=== PATIENT | female | born 1955 | race Caucasian/White ===

== ENCOUNTER 2020-09-16 22:24 | Observation (INO) ==
[2020-09-16] MEDS ORDERED: Isovue-370 500 ML BOTTLE IVP ONE (23:09)
[2020-09-16 23:42] LABS: Hematocrit 43.4 % (35.3-44.9); Hemoglobin 13.5 g/dL (11.5-15.4); Mean Corpuscular HGB Conc 31.1 g/dL (31.6-35.5); Mean Corpuscular Hemoglobin 28.5 pg (28.0-33.3); Mean Corpuscular Volume 91.6 fL (83.0-100.0); Mean Platelet Volume 10.7 fL (9.4-12.4); Platelet Count 194 K/mcL (140-400); Red Blood Count 4.74 M/mcL (3.82-4.97); Red Cell Distribution Width 14.3 % (11.5-14.5); White Blood Count 22.2 K/mcL (4.3-11.1)
[2020-09-16 23:49] LABS: INR 1.2; Prothrombin Time 13.4 Seconds (9.4-12.1)
[2020-09-16 23:52] LABS: Activated Partial Thrombo Time 24.6 Seconds (26.0-36.0)
[2020-09-17 00:05] LABS: Alanine Aminotransferase 17 Units/L (7-52); Albumin 3.9 g/dL (3.5-5.7); Albumin/Globulin Ratio 1.5 (1.1-2.2); Alkaline Phosphatase 56 Units/L (34-104); Aspartate Amino Transferase 18 Units/L (13-39); BUN/Creatinine Ratio 32 (6-26); Bilirubin,Direct 0.1 mg/dL (0.0-0.2); Bilirubin,Indirect 0.2 mg/dL (0.0-1.0); Bilirubin,Total 0.3 mg/dL (0.3-1.0); Blood Urea Nitrogen 22 mg/dL (8-23); Calcium 8.5 mg/dL (8.6-10.3); Carbon Dioxide 25 mEq/L (23-29); Chloride 102 mEq/L (98-107); Globulin 2.6 g/dL (2.4-3.5); Glucose 97 mg/dL (70-105); Magnesium 2.1 mg/dL (1.6-2.6); Osmolality,Calculated 285 (280-300); Phosphorous 2.9 mg/dL (2.7-4.5); Potassium 3.2 mEq/L (3.5-5.1); Sodium 136 mEq/L (136-145); Total Protein 6.5 g/dL (6.4-8.9); eGFR For African Americans > 60 (> 60); eGFR For Non-African Americans > 60 (> 60)
[2020-09-17 00:06] LABS: Troponin I < 0.03 ng/mL (< 0.04)
[2020-09-17 00:20] LABS: Eosinophils # 0.9 K/mcL (0.0-0.6); Lymphocytes # 12.9 K/mcL (0.6-4.6); Monocytes # 1.8 K/mcL (0.0-1.3); Neutrophils # 6.7 K/mcL (1.6-8.9); Platelet Estimate Normal (Normal); Reactive Lymphocytes Present (Not Present); Smudge Cells Present (Not Present)
[2020-09-17 00:21] LABS: Anisocytosis 1+ (Not Present)
[2020-09-17] MEDS ORDERED: methylPREDNISolone 125 MG/2 ML VIAL IVP ONE (00:33)
[2020-09-17 02:49] LABS: Bilirubin,Urine Negative (Negative); Blood,Urine Small (Negative); Clarity,Urine Clear (Clear); Color,Urine Colorless (Yellow); Glucose,Urine (UA) Normal (Normal); Ketones,Urine 10 mg/dL (Negative); Leukocyte Esterase,Urine Negative (Negative); Nitrite,Urine Negative (Negative); PH,Urine 6.5 pH Units (5.0-8.0); Protein,Urine Negative (Neg-Trace); RBC,Urine 0-3 per hpf (0-3); Specific Gravity,Urine > 1.030 (1.010-1.025); Squamous Epithelial Cell,Urine Few per hpf (None-Few); Urobilinogen,Urine Normal (Normal); WBC,Urine 0-3 per hpf (0-3)
[2020-09-17] MEDS ORDERED: MetroNIDAZOLE 500 MG/100 ML 500 MG/100 ML BAG IVPB ONE (04:39)
[2020-09-17] MEDS ORDERED: 0.9 % Sodium Chloride 1,000 ML IVC ONE (04:40)
[2020-09-17] MEDS ORDERED: Ondansetron 4 MG/2 ML VIAL IVP PRN (05:05)
[2020-09-17] MEDS ORDERED: Naloxone 0.4 MG/ML INJ IVP PRN (05:05)
[2020-09-17] MEDS ORDERED: Acetaminophen 325 MG TABLET PO PRN (06:00)
[2020-09-17 07:49] LABS: Hematocrit 42.3 % (35.3-44.9); Hemoglobin 13.2 g/dL (11.5-15.4); Mean Corpuscular HGB Conc 31.2 g/dL (31.6-35.5); Mean Corpuscular Hemoglobin 28.3 pg (28.0-33.3); Mean Corpuscular Volume 90.8 fL (83.0-100.0); Mean Platelet Volume 10.7 fL (9.4-12.4); Platelet Count 194 K/mcL (140-400); Red Blood Count 4.66 M/mcL (3.82-4.97); Red Cell Distribution Width 14.5 % (11.5-14.5)
[2020-09-17 08:09] LABS: BUN/Creatinine Ratio 30 (6-26); Blood Urea Nitrogen 17 mg/dL (8-23); Calcium 8.8 mg/dL (8.6-10.3); Carbon Dioxide 23 mEq/L (23-29); Chloride 106 mEq/L (98-107); Glucose 167 mg/dL (70-105); Osmolality,Calculated 289 (280-300); Potassium 3.5 mEq/L (3.5-5.1); Sodium 137 mEq/L (136-145); eGFR For African Americans > 60 (> 60); eGFR For Non-African Americans > 60 (> 60)
[2020-09-17 08:14] LABS: Lymphocytes # 20.6 K/mcL (0.6-4.6); Neutrophils # 3.4 K/mcL (1.6-8.9)
[2020-09-17 08:15] LABS: Platelet Estimate Normal (Normal); Reactive Lymphocytes Present (Not Present); Smudge Cells Present (Not Present)
[2020-09-17] MEDS: 0.9 % Sodium Chloride 1,000 ML IVC SCH ×2 (09:30→12:44)
[2020-09-17] MEDS: MetroNIDAZOLE 500 MG/100 ML 500 MG/100 ML BAG IVPB SCH ×2 (12:44→20:48)
[2020-09-18] MEDS ORDERED: Melatonin 3 MG TABLET PO ONE (01:28)
[2020-09-18] MEDS: MetroNIDAZOLE 500 MG/100 ML 500 MG/100 ML BAG IVPB SCH ×2 (04:31→12:12)
[2020-09-18] MEDS ORDERED: Fluticasone Propionate Nasal 50 MCG/SPRAY BOTTLE NS PRN (09:20)
[2020-09-18 11:00] LABS: Red Cell Distribution Width 14.6 % (11.5-14.5)
[2020-09-18 11:01] LABS: Hematocrit 41.9 % (35.3-44.9); Hemoglobin 13.1 g/dL (11.5-15.4); Mean Corpuscular HGB Conc 31.3 g/dL (31.6-35.5); Mean Corpuscular Volume 92.7 fL (83.0-100.0); Mean Platelet Volume 11.1 fL (9.4-12.4); Platelet Count 200 K/mcL (140-400); Red Blood Count 4.52 M/mcL (3.82-4.97)
[2020-09-18 11:08] LABS: White Blood Count 30.3 K/mcL (4.3-11.1)
[2020-09-18 11:19] LABS: BUN/Creatinine Ratio 29 (6-26); Blood Urea Nitrogen 18 mg/dL (8-23); Calcium 9.2 mg/dL (8.6-10.3); Carbon Dioxide 25 mEq/L (23-29); Chloride 110 mEq/L (98-107); Glucose 137 mg/dL (70-105); Magnesium 2.3 mg/dL (1.6-2.6); Osmolality,Calculated 300 (280-300); Potassium 3.4 mEq/L (3.5-5.1); Sodium 143 mEq/L (136-145); eGFR For African Americans > 60 (> 60); eGFR For Non-African Americans > 60 (> 60)
[2020-09-18] MEDS: Venlafaxine XR (24 HR) 75 MG CAP.ER.24H PO SCH (12:12)
[2020-09-18] MEDS ORDERED: Vancomycin Oral Soln 125 MG/2.5 ML UDC PO SCH (13:00)
[2020-09-18] MEDS: metroNIDAZOLE 500 MG TABLET PO SCH (20:21)
[2020-09-18] MEDS ORDERED: Melatonin 3 MG TABLET PO SCH (21:00)
[2020-09-19 02:03] LABS: Hematocrit 39.4 % (35.3-44.9); Hemoglobin 12.1 g/dL (11.5-15.4); Mean Corpuscular HGB Conc 30.7 g/dL (31.6-35.5); Mean Corpuscular Hemoglobin 28.1 pg (28.0-33.3); Mean Corpuscular Volume 91.6 fL (83.0-100.0); Mean Platelet Volume 11.1 fL (9.4-12.4); Platelet Count 215 K/mcL (140-400); Red Cell Distribution Width 14.6 % (11.5-14.5)
[2020-09-19 02:05] LABS: White Blood Count 30.4 K/mcL (4.3-11.1)
[2020-09-19 02:24] LABS: BUN/Creatinine Ratio 35 (6-26); Blood Urea Nitrogen 22 mg/dL (8-23); Calcium 8.5 mg/dL (8.6-10.3); Carbon Dioxide 24 mEq/L (23-29); Chloride 109 mEq/L (98-107); Glucose 98 mg/dL (70-105); Magnesium 2.1 mg/dL (1.6-2.6); Osmolality,Calculated 295 (280-300); Potassium 3.7 mEq/L (3.5-5.1); Sodium 141 mEq/L (136-145); eGFR For African Americans > 60 (> 60); eGFR For Non-African Americans > 60 (> 60)
[2020-09-19 04:57] VITALS: O2SAT 96
[2020-09-19 06:40] VITALS: BP 152/83; PULSE 67; TEMP 97.9
[2020-09-19] MEDS: Venlafaxine XR (24 HR) 75 MG CAP.ER.24H PO SCH (08:37)
[2020-09-19] MEDS: metroNIDAZOLE 500 MG TABLET PO SCH (08:37)
[2020-09-19] MEDS ORDERED: hydroCHLOROthiazide 25 MG TABLET PO SCH (09:00)
[2020-09-19] MEDS ORDERED: NON-FORMULARY MEDICATION 1 EACH EACH (Olopatadine Hcl [Pataday] 2.5 ML Drops) OP SCH (09:00)
[2020-09-19] MEDS ORDERED: Valsartan 80 MG TABLET PO SCH (09:00)
[2020-09-19] MEDS ORDERED: Aspirin 81 MG TAB.CHEW PO SCH (09:00)
== END 2020-09-19 14:36 | disposition home or self-care (01) ==
LOC: 3ANU 22:24 → EMEROOARM 22:24 → SUATTDRO 09-17 06:00 → 3ANU 09-17 06:32 → 3NENU 09-19 00:58
PROVIDERS: ADMIT Internal Medicine; ATTEND Internal Medicine